=== PATIENT | female | born 1995 | race Caucasian/White ===

== ENCOUNTER 2018-11-14 20:29 | Emergency (ER) | payer OTHER ==
[2018-11-14 20:53] VITALS: BP 115/73
--- NOTE | 2018-11-14 21:02 | UC ---
Respiratory Complaint HPI - HPI Summary HPI Summary: Cough for 1 week now has cough and sob no fever - History of Current Complaint Chief Complaint: UCRespiratory Stated Complaint: URI Time Seen by Provider: 11/14/18 20:58 Hx Obtained From: Patient Hx Last Menstrual Period: [id number] ?: No Onset/Duration: Gradual Onset, Lasting Weeks - 1, Still Present Timing: Intermittent Episodes Pain Intensity: 4 Pain Scale Used: 0-10 Numeric Character: Cough: Nonproductive Aggravating Factors: Nothing Alleviating Factors: Nothing Associated Signs And Symptoms: Positive: Nasal Congestion - Allergies/Home Medications Allergies/Adverse Reactions: Allergies Allergy/AdvReac Type Severity Reaction Status Date / Time [facility] Allergy Rash Verified 11/14/18 20:54 SEASONAL ALLERGIES Allergy Congestion Uncoded 11/14/18 20:54 Home Medications: Home Medications Levonorgestrel (Iud) [Kyleena IUD] 17.5 mcg IU ONCE 11/14/18 [History Confirmed 11/14/18] PMH/Surg Hx/FS Hx/Imm Hx Previously Healthy: Yes - Surgical History Surgical History: Yes Surgery Procedure, Year, and Place: ADENOIDECTOMY, [facility] [place] 1996. YULIET REMOVED , 2007, [facility] [place]. Jaw 2012 - Family History Known Family History: Positive: None - Social History Occupation: Employed Full-time Lives: With Family Alcohol Use: Weekly Alcohol Amount: 3x Substance Use Type: None Smoking Status (MU): Never Smoked Tobacco - Immunization History Most Recent Influenza Vaccination: HAS NOT RECEIVED Most Recent Tetanus Shot: UP TO DATE-UNSURE OF EXACT DATE Most Recent Pneumonia Vaccination: NEVER Review of Systems All Other Systems Reviewed And Are Negative: Yes Constitutional: Positive: Negative Skin: Positive: Negative Eyes: Positive: Negative ENT: Positive: Nasal Discharge Respiratory: Positive: Cough Cardiovascular: Positive: Negative Gastrointestinal: Positive: Negative Genitourinary: Positive: Negative Motor: Positive: Negative Neurovascular: Positive: Negative Musculoskeletal: Positive: Negative Neurological: Positive: Negative Psychological: Positive: Negative Is Patient Immunocompromised?: No Physical Exam Triage Information Reviewed: Yes Appearance: Well-Appearing, No Pain Distress, Well-Nourished Vital Signs: Initial Vital Signs Temp 98.7 F 11/14/18 20:49 Pulse 62 11/14/18 20:49 Resp 16 11/14/18 20:49 BP 115/73 11/14/18 20:49 Pulse Ox 100 05/25/19 20:49 Vital Signs Reviewed: Yes Eye Exam: Normal Eyes: Positive: Conjunctiva Clear ENT Exam: Normal ENT: Positive: Normal ENT inspection, Hearing grossly normal, Pharynx normal, Nasal congestion, TMs normal, Uvula midline. Negative: Nasal drainage, Trismus , Muffled voice, Hoarse voice, Dental tenderness, Sinus tenderness Dental Exam: Normal Neck exam: Normal Neck: Positive: Supple, Nontender Respiratory Exam: Normal Respiratory: Positive: Chest non-tender, Lungs clear, Normal breath sounds, No respiratory distress, No accessory muscle use Cardiovascular Exam: Normal Cardiovascular: Positive: RRR, No Murmur, Pulses Normal, Brisk Capillary Refill Abdominal Exam: Normal Abdomen Description: Positive: Nontender, No Organomegaly Musculoskeletal Exam: Normal Musculoskeletal: Positive: Strength Intact, ROM Intact, No Edema Neurological Exam: Normal Neurological: Positive: Alert, Muscle Tone Normal Psychological Exam: Normal Skin Exam: Normal Respiratory Course/Dx - Course Course Of Treatment: patient educated to most likely dx of allergic broncho-cough---patient will try zyrtec, tessalon/albuterol for cough if worsens she will tow picker antibiotic increase fluids and follow with pcp - Differential Dx/Diagnosis Provider Diagnosis: Allergic bronchitis Discharge - Sign-Out/Discharge Documenting (check all that apply): Patient Departure All imaging exams completed and their final reports reviewed: No Studies - Discharge Plan Condition: Stable Disposition: HOME Prescriptions: Azithromycin TAB* [Zithromax TAB (Z-JERRI) 250 mg #6 tabs] 2 tab PO .TODAY, THEN 1 DAILY #1 jerri Patient Education Materials: Cetirizine (By mouth), Bronchospasm (ED), How to Use a Metered-Dose Inhaler and a Spacer (ED), Acute Cough (ED) Referrals: [facility] [Outside] - If Needed - Billing Disposition and Condition Condition: STABLE Disposition: Home
[2018-11-14] MEDS ORDERED: Benzonatate CAP* 100 MG PO ONE (21:09)
[2018-11-14] MEDS ORDERED: Albuterol HFA INHALER* 8 gm MDI INH ONE (21:10)
== END 2018-11-14 21:46 | disposition home or self-care (01) ==
LOC: UCEAST 20:29
DX: J45.909 Unspecified asthma, uncomplicated (principal); Z88.1 Allergy status to other antibiotic agents; Z91.09 Other allergy status, other than to drugs and biological substances
CPT/HCPCS: 99213; A9270-GY; G0463